=== PATIENT | female | born 1960 | race Caucasian/White ===

== ENCOUNTER 2017-08-16 14:48 | Emergency (ER) | payer MEDICAID, SELFPAY ==
[2017-08-16 15:26] VITALS: BMI 29.2
[2017-08-16 16:58] VITALS: RESP 18; TEMP 36.6; O2SAT 96; BMI 71.1
[2017-08-16 17:00] LABS: Microscopic, Urine URINE MICROSCOPIC (MICROSCOPIC)
[2017-08-16 17:04] LABS: Appearance,Urine Slightly Cloudy (Clear); Color,Urine Amber (Yellow); PH,Urine 6.5 (5.0-8.5); Specific Gravity, Urine 1.025 (1.005-1.030)
[2017-08-16 17:05] LABS: Blood, Urine 1+ (Negative); Glucose,Urine (UA) Negative (Negative); Ketones,Urine 4+ (Negative); Nitrate,Urine Positive (Negative); Protein,Urine 2+ (Negative)
[2017-08-16 17:06] LABS: Bilirubin,Urine 2+ (Negative); Leukocyte Esterase,Urine Trace (Negative)
[2017-08-16 17:12] LABS: Bacteria,Urine 3+ /lpf; Yeast,Urine 2+ /lpf
--- NOTE | 2017-08-16 17:12 | [facility].EDGENADL ---
ED Disposition Clinical Impression: Dehydration, Polycythemia, UTI (urinary tract infection), COPD (chronic obstructive pulmonary disease), Left against medical advice Disposition: Home, Self-Care Condition on Discharge: Fair Additional Instructions: Use Phenergan as needed for vomiting Start antibiotic Cipro 250 p.o. twice daily Drink plenty of liquids Return as needed. Prescriptions: Ciprofloxacin HCl [Cipro 500mg Tab] 500 mg PO Q12 #14 tab - Critical Care Critical Care Time: No Attestation: On 08/16/17, the high probability of a clinically significant, sudden or life threatening deterioration of the following system(s) required my full and direct attention, intervention and personal management. The time I documented below is in addition to time spent performing reported procedures but includes the following listed in this critical care notation. Medical Decision Making - Medical Records Medical records reviewed: Yes: I reviewed the patient's medical records. Vital Signs: 08/16/17 16:58 Temperature 97.8 F Temperature Source Oral Respiratory Rate 18 02 Sat by Pulse Oximetry 96 Oxygen Delivery Method Room Air - Lab Data Lab Results 08/16/17 16:55: Urine Color Lori, Urine Appearance Slightly cloudy, Urine pH 6.5, Ur Specific [place] 1.025, Urine Protein 2+, Urine Glucose (UA) Negative, Urine Ketones 4+, Urine Blood 1+, Urine Nitrate Positive A, Urine Bilirubin 2+ A, Urine Urobilinogen 1.0, Ur Leukocyte Esterase Trace A, Urine WBC 10-20, Ur Squamous Epith Cells 3-5, Urine Bacteria 3+, Urine Yeast 2+ 08/16/17 17:00: Influenza Type A Ag Negative, Influenza Type B Ag Negative 08/16/17 17:07: Sodium 142, Potassium 3.5, Chloride 97 L, Carbon Dioxide 31, Anion Gap 17.5 H, BUN 19 H, Creatinine 1.06 H, Estimated Creat Clear 56, Estimated GFR 54 L, Est GFR ( Amer) 65, Glucose 122 H, Calcium 10.1, Total Bilirubin 1.3 H, AST 17, ALT 9 L, Alkaline Phosphatase 110, Total Protein 8.2, Albumin 4.8, Globulin 3.4 H, Albumin/Globulin Ratio 1.4 08/16/17 17:07: WBC 13.2 H, RBC 5.91 H, Hgb 19.9 H*, Hct 57.5 H, MCV 97.2, MCH 33.7 H, MCHC 34.7, RDW 13.4, Plt Count 286, MPV 7.7, Neut % (Auto) 89.2 H, Lymph % (Auto) 6.7 L, [place] % (Auto) 2.8, Eos % (Auto) 1.2, Baso % (Auto) 0.1, Neut # (Auto) 11.8 H, Lymph # (Auto) 0.9, [place] # (Auto) 0.4, Eos # (Auto) 0.2, Baso # (Auto) 0.0, Total Counted 100, Neutrophils % (Manual) 86 H, Band Neutrophils % 7.0, Lymphocytes % (Manual) 6 L, Monocytes % (Manual) 1 L, Platelet Estimate Normal, Macrocytosis 1+ 08/16/17 17:07: Magnesium 2.2 08/16/17 18:29: Lactic Acid 3.9 H Result diagrams: 08/16/17 17:07 08/16/17 17:07 Orders (Tests/Meds): ED MEDICATIONS Discontinued Medications Generic Name Dose Route Start Last Admin Trade Name Freq PRN Reason Stop Dose Admin Dicyclomine HCl 10 mg 08/16/17 17:13 08/16/17 18:46 Bentyl 10mg Capsule PO 08/16/17 17:14 10 mg ONCE ONE Administration Lactated Ringer's 1,000 mls @ 999 mls/hr 08/16/17 17:15 08/16/17 18:46 Lactated Ringer's 1000 Ml Bag IV 08/16/17 18:15 999 mls/hr .Q1H1M TERESA Administration Lactated Ringer's 1,000 mls @ 999 mls/hr 08/16/17 18:30 08/16/17 19:34 Lactated Ringer's 1000 Ml Bag IV 08/16/17 19:30 999 mls/hr .Q1H1M TERESA Administration Loperamide HCl 4 mg 08/16/17 17:18 08/16/17 18:46 Imodium 2 Mg Capsule PO 08/16/17 17:19 4 mg ONCE ONE Administration Ondansetron HCl 4 mg 08/16/17 17:13 08/16/17 18:46 Zofran 4mg/2ml Vial IV 08/16/17 17:14 4 mg ONCE ONE Administration ORDERS Category Date Time Status Diarrhea Panel, PCR Stat Lab 08/16/17 18:25 Received Blood Culture Stat Micro 08/16/17 18:29 Received Urine Culture Stat Micro 08/16/17 16:55 Received - Radiology Data #1 Image(s): Chest, Abdomen Image Reviewed: Yes I have reviewed radiologist's interpretation Preliminary Findings: Abnormal - Thanh Inquiry Pt receiving controlled substance: No
--- NOTE | 2017-08-16 17:13 | XR_ITS ---
XR acute abdomen series COMPARISON: None HISTORY: Nausea vomiting diarrhea TECHNIQUE: PA chest KUB and upright abdomen FINDINGS: Severe emphysematous change of the chest is noted with marked hyperexpansion of lung galdamez and depression of the hemidiaphragms. There likely are bulla in the right upper lobe. The cardiac silhouette appears somewhat small. There is no pneumonic infiltrate seen. Abdominal films show a rather gasless appearing abdomen consistent with a history of diarrhea. Is a small amount of gas in the lower sigmoid colon and rectum. There are no abnormal soft tissue shadows. There is no free air. There is a vertebroplasty of the L4 vertebral body. IMPRESSION: 1. Severe emphysematous change possibly secondary to alpha-1 antitrypsin deficiency syndrome 2. Somewhat gasless appearing abdomen consistent with diarrhea but there is no evidence of obstruction or other abnormality
--- NOTE | 2017-08-16 17:15 | ED_ITS ---
ED Disposition Clinical Impression: Dehydration, Polycythemia, UTI (urinary tract infection), COPD (chronic obstructive pulmonary disease), Left against medical advice Disposition: Home, Self-Care Condition on Discharge: Fair Additional Instructions: Use Phenergan as needed for vomiting Start antibiotic Cipro 250 p.o. twice daily Drink plenty of liquids Return as needed. Prescriptions: Ciprofloxacin HCl [Cipro 500mg Tab] 500 mg PO Q12 #14 tab - Critical Care Critical Care Time: No Attestation: On 08/16/17, the high probability of a clinically significant, sudden or life threatening deterioration of the following system(s) required my full and direct attention, intervention and personal management. The time I documented below is in addition to time spent performing reported procedures but includes the following listed in this critical care notation. Medical Decision Making - Medical Records Medical records reviewed: Yes: I reviewed the patient's medical records. Vital Signs: 08/16/17 16:58 Temperature 97.8 F Temperature Source Oral Respiratory Rate 18 02 Sat by Pulse Oximetry 96 Oxygen Delivery Method Room Air - Lab Data Lab Results 08/16/17 16:55: Urine Color Lori, Urine Appearance Slightly cloudy, Urine pH 6.5, Ur Specific [place] 1.025, Urine Protein 2+, Urine Glucose (UA) Negative, Urine Ketones 4+, Urine Blood 1+, Urine Nitrate Positive A, Urine Bilirubin 2+ A , Urine Urobilinogen 1.0, Ur Leukocyte Esterase Trace A, Urine WBC 10-20, Ur Squamous Epith Cells 3-5, Urine Bacteria 3+, Urine Yeast 2+ 08/16/17 17:00: Influenza Type A Ag Negative, Influenza Type B Ag Negative 08/16/17 17:07: Sodium 142, Potassium 3.5, Chloride 97 L, Carbon Dioxide 31, Anion Gap 17.5 H, BUN 19 H, Creatinine 1.06 H, Estimated Creat Clear 56, Estimated GFR 54 L, Est GFR ( Amer) 65, Glucose 122 H, Calcium 10.1, Total Bilirubin 1.3 H, AST 17, ALT 9 L, Alkaline Phosphatase 110, Total Protein 8.2, Albumin 4.8, Globulin 3.4 H, Albumin/Globulin Ratio 1.4 08/16/17 17:07: WBC 13.2 H, RBC 5.91 H, Hgb 19.9 H*, Hct 57.5 H, MCV 97.2, MCH 33.7 H, MCHC 34.7, RDW 13.4, Plt Count 286, MPV 7.7, Neut % (Auto) 89.2 H, Lymph % (Auto) 6.7 L, [place] % (Auto) 2.8, Eos % (Auto) 1.2, Baso % (Auto) 0.1, Neut # (Auto) 11.8 H, Lymph # (Auto) 0.9, [place] # (Auto) 0.4, Eos # (Auto) 0.2, Baso # (Auto) 0.0, Total Counted 100, Neutrophils % (Manual) 86 H, Band Neutrophils % 7.0, Lymphocytes % (Manual) 6 L, Monocytes % (Manual) 1 L, Platelet Estimate Normal, Macrocytosis 1+ 08/16/17 17:07: Magnesium 2.2 08/16/17 18:29: Lactic Acid 3.9 H Result diagrams: 08/16/17 17:07 08/16/17 17:07 Orders (Tests/Meds): ED MEDICATIONS Discontinued Medications Generic Name Dose Route Start Last Admin Trade Name Freq PRN Reason Stop Dose Admin Dicyclomine HCl 10 mg 08/16/17 17:13 08/16/17 18:46 Bentyl 10mg Capsule PO 08/16/17 17:14 10 mg ONCE ONE Administration Lactated Ringer's 1,000 mls @ 999 mls/hr 08/16/17 17:15 08/16/17 18:46 Lactated Ringer's 1000 Ml Bag IV 08/16/17 18:15 999 mls/hr .Q1H1M TERESA Administration Lactated Ringer's 1,000 mls @ 999 mls/hr 08/16/17 18:30 08/16/17 19:34 Lactated Ringer's 1000 Ml Bag IV 08/16/17 19:30 999 mls/hr .Q1H1M TERESA Administration Loperamide HCl 4 mg 08/16/17 17:18 08/16/17 18:46 Imodium 2 Mg Capsule PO 08/16/17 17:19 4 mg ONCE ONE Administration
[2017-08-16 17:27] LABS: Magnesium 2.2 mg/dL (1.4-2.2)
[2017-08-16 17:31] LABS: Basophils % 0.1 % (0.1-2.0); Eosinophils # 0.2 K/mm3 (0.0-0.4); Eosinophils % 1.2 % (0.1-12.0); Lymphocytes # 0.9 K/mm3 (0.7-4.5); Lymphocytes % 6.7 K/mm3 (10-50); Mean Corpuscular HGB Conc 34.7 g/dL (31.8-35.4); Mean Corpuscular Hemoglobin 33.7 pg (27.0-31.2); Mean Corpuscular Volume 97.2 fl (81-99); Mean Platelet Volume 7.7 fl (7.4-10.4); Monocytes # 0.4 K/mm3 (0.1-1.0); Monocytes % 2.8 % (1.7-9.3); Neutrophils # 11.8 K/mm3 (1.8-7.8); Neutrophils % 89.2 % (37.0-80.0); Platelet Count 286 K/mm3 (142-424); Red Blood Count 5.91 M/mm3 (4.20-5.40); Red Cell Distribution Width 13.4 % (11.5-17.5); White Blood Count 13.2 K/mm3 (4.8-10.8)
[2017-08-16 17:37] LABS: Alanine Aminotransferase 9 U/L (12-78); Albumin Level 4.8 gm/dL (3.4-5.0); Albumin/Globulin Ratio 1.4 (1.1-1.8); Alkaline Phosphatase 110 U/L (46-116); Anion Gap 17.5 mEq/L (5-15); Aspartate Amino Transferase 17 U/L (15-37); Bilirubin,Total 1.3 mg/dL (0.2-1.0); Blood Urea Nitrogen 19 mg/dL (7-18); Calcium 10.1 mg/dL (8.5-10.1); Carbon Dioxide 31 mmol/L (21.0-32.0); Chloride 97 mmol/L (98-107); Creatinine Clearance Estimated 56 mL/min (0-300); Creatinine,Serum 1.06 mg/dL (0.55-1.02); Estimated Glomerular Filt Rate 54 ml/min (>60); GFR (African American) 65 ML/MIN (>60); Globulin 3.4 gm/dl (1.3-3.2); Glucose 122 mg/dL (74-106); Potassium 3.5 mmoL/L (3.5-5.1); Sodium 142 mmol/L (136-145); Total Protein,Serum 8.2 gm/dL (6.4-8.2)
[2017-08-16 17:38] LABS: Hematocrit 57.5 % (37.0-47.0); Hemoglobin 19.9 g/dL (12.2-16.2)
[2017-08-16 17:39] LABS: MANUAL DIFFERENTIAL MANUAL DIFFERENTIAL (MANUAL DIFF)
[2017-08-16 17:44] LABS: Lymphocytes % 6 % (10-50); Macrocytosis 1+; Monocytes % 1 % (2-9); Neutrophils % 86 % (42-76); Platelet Estimate Normal; Total Cells Counted 100
[2017-08-16 18:27] LABS: Adenovirus F 40/41, stool Not Detected (NotDetected); Astrovirus Not Detected (NotDetected); Campylobacter Not Detected (NotDetected); Clostridium Difficile A/B, PCR Not Detected (NotDetected); Cryptosporidium Not Detected (NotDetected); Cyclospora Cayetanesis Not Detected (NotDetected); Entamoeba histolytica Not Detected (NotDetected); Enteroaggregative E coli Not Detected (NotDetected); Enteropathogenic E coli Not Detected (NotDetected); Enterotoxigenic E coli Not Detected (NotDetected); Giardia lamblia Not Detected (NotDetected); Norovirus Not Detected (NotDetected); Plesimonas Shigalloides, PCR Not Detected (NotDetected); Rotavirus A Not Detected (NotDetected); Salmonella, PCR Not Detected (NotDetected); Sapovirus Not Detected (NotDetected); Shiga-like toxin E coli Not Detected (NotDetected); Shigella Enterovasive E coli Not Detected (NotDetected); Vibrio Cholerae Not Detected (NotDetected); Vibrio, PCR Not Detected (NotDetected); Yersinia Entercolitica, PCR Not Detected (NotDetected)
[2017-08-16 19:16] LABS: Lactic Acid 3.9 mmol/L (0.4-2.0)
[2017-08-16 20:01] VITALS: BP 109/65; PULSE 91; RESP 16; TEMP 37.2; O2SAT 99
[2017-08-16 20:18] LABS: Reflex Lactic No Lactic Reflex
--- NOTE | 2017-08-24 15:20 | PC.NURSE ---
This patient rec'd a phenergan take home pack. The mar was adjusted for charging purposes. RX [id number]
== END 2017-08-16 20:02 | disposition home or self-care (01) ==
LOC: UTC 14:59 → ER 16:34
PROVIDERS: Emergency Provider Emergency Medicine
DX: E86.0 Dehydration (principal); D75.1 Secondary polycythemia; N39.0 Urinary tract infection, site not specified; J44.9 Chronic obstructive pulmonary disease, unspecified; F17.210 Nicotine dependence, cigarettes, uncomplicated; Z53.21 Procedure and treatment not carried out due to patient leaving prior to being seen by health care provider
CPT/HCPCS: 74021; 80053; 81001; 83605; 83735; 85007; 85025; 87040; 87086; 87088; 87186; 87275; 87276; 87507; 96365; 96366; 96375; 99284; J2405

== ENCOUNTER → 2018-03-26 15:58 | Outpatient (CLI) | payer MEDICAID, SELFPAY ==
--- NOTE | 2018-03-26 16:11 | XR_ITS ---
XR chest 2V HISTORY: ITS.REASON: PERIPHERAL EDEMA, COUGH ORDERING PHYSICIAN: Zeeshan Sheridan MD PATIENT AGE: 57 years COMPARISON: None FINDINGS: The heart size is unremarkable. There is hyperinflation with attenuation of the peripheral pulmonary vessels consistent with COPD/emphysema. On the lateral view there is increased density within the posterior costophrenic sulcus. This is ill-defined and suggestive of underlying pneumonia or effusion. This however is not identified on the frontal view. No acute bony anomalies. IMPRESSION: 1. COPD/emphysema. 2. Increased density within the posterior costophrenic sulcus suggesting underlying effusion and/or infiltrate
[2018-03-26 16:16] LABS: Basophils % 0.4 % (0.1-2.0); Eosinophils # 0.1 K/mm3 (0.0-0.4); Eosinophils % 2.3 % (0.1-12.0); Hematocrit 57.3 % (37.0-47.0); Hemoglobin 17.9 g/dL (12.2-16.2); Lymphocytes # 0.5 K/mm3 (0.7-4.5); Lymphocytes % 11.8 K/mm3 (10-50); Mean Corpuscular HGB Conc 31.3 g/dL (31.8-35.4); Mean Corpuscular Hemoglobin 31.3 pg (27.0-31.2); Mean Corpuscular Volume 100.1 fl (81-99); Monocytes # 0.2 K/mm3 (0.1-1.0); Monocytes % 4.3 % (1.7-9.3); Neutrophils # 3.5 K/mm3 (1.8-7.8); Neutrophils % 81.2 % (37.0-80.0); Platelet Count 166 K/mm3 (142-424); Red Blood Count 5.73 M/mm3 (4.20-5.40); Red Cell Distribution Width 13.6 % (11.5-17.5); White Blood Count 4.3 K/mm3 (4.8-10.8)
[2018-03-26 18:05] LABS: Alanine Aminotransferase 11 U/L (12-78); Albumin Level 3.4 gm/dL (3.4-5.0); Albumin/Globulin Ratio 1.4 (1.1-1.8); Alkaline Phosphatase 102 U/L (46-116); Anion Gap 8.8 mEq/L (5-15); Aspartate Amino Transferase 13 U/L (15-37); Bilirubin,Total 1.1 mg/dL (0.2-1.0); Blood Urea Nitrogen 13 mg/dL (7-18); Calcium 8.6 mg/dL (8.5-10.1); Carbon Dioxide 39 mmol/L (21.0-32.0); Chloride 96 mmol/L (98-107); Creatinine,Serum 0.86 mg/dL (0.55-1.02); Estimated Glomerular Filt Rate 69 ml/min (>60); GFR (African American) 83 ML/MIN (>60); Globulin 2.5 gm/dl (1.3-3.2); Glucose 78 mg/dL (74-106); Magnesium 2.1 mg/dL (1.4-2.2); Potassium 3.8 mmoL/L (3.5-5.1); Sodium 140 mmol/L (136-145); Thyroid Stimulating Hormone 3.14 uIU/ml (0.358-3.740); Total Protein,Serum 5.9 gm/dL (6.4-8.2)
== END ==
PROVIDERS: PCP Internal Medicine Adolescent Medicine; Visit Provider Internal Medicine Adolescent Medicine
DX: R60.9 Edema, unspecified (principal); R05 Cough
CPT/HCPCS: 36415; 71046; 80053; 83735; 84443; 85025

== ENCOUNTER → 2018-04-06 11:04 | Outpatient (CLI) | payer MEDICAID, SELFPAY ==
--- NOTE | 2018-04-06 11:10 | CT_ITS ---
CT chest w con HISTORY: Emphysema, cough, abnormal chest x-ray, tobacco use/smoker ITS.REASON: ABNORMAL CHEST X-RAY ORDERING PHYSICIAN: Zeeshan Sheridan MD PATIENT AGE: 57 years COMPARISON: None TECHNIQUE: Axial images obtained following the administration of 75 mL of Isovue 370 . Sagittal, and coronal reformatted images are also generated and reviewed. All CT scans at the facility use one or more dose reduction, viz: automated exposure control, ma/kV adjustment per patient size (including targeted exams where dose is matched to indication, i.e. head), or iterative reconstruction technique. FINDINGS: No mediastinal or hilar mass or adenopathy. No evidence of aortic aneurysm or central pulmonary embolus. The right and left main pulmonary arteries are somewhat prominent each measuring 2.8 cm. The ascending aorta measures 2.9 cm. The main pulmonary artery measures 3 cm. The atrium and right ventricle are enlarged with mild bowing of the cardiac septum toward the left ventricle consistent with right heart strain. There is diffuse panlobular emphysematous change. No lobar consolidation or collapse is evident. There is a noncalcified 6 mm nodule in the right lower lobe laterally. A calcified granulomas present in the left lung base anteriorly. There are minimal atelectatic or fibrotic changes in the lung bases. No effusions or infiltrates. Upper abdominal images show mild amount of ascites. No acute bony anomalies. IMPRESSION: 1. Centrilobular emphysema with mild atelectatic or fibrotic changes in the lung bases. 2. Mild prominence of the pulmonary artery trunk and right and left main pulmonary artery suggesting pulmonary arterial hypertension. 3. Enlarged right atrium and right ventricle with bowing of the cardiac septum toward the left ventricle consistent with right heart strain. 4. Noncalcified 6 mm nodule right lung base. Nonspecific. Recommend 6 month follow-up
== END ==
PROVIDERS: Family Provider Internal Medicine Adolescent Medicine; PCP Internal Medicine Adolescent Medicine; Visit Provider Internal Medicine Adolescent Medicine
DX: R93.8 Abnormal findings on diagnostic imaging of other specified body structures (principal)
CPT/HCPCS: 71260; Q9967

== ENCOUNTER → 2018-04-16 11:11 | Outpatient (CLI) | payer MEDICAID, SELFPAY ==
--- NOTE | 2018-04-16 11:16 | CA_ITS ---
PROCEDURE: 2-D M-mode and color Doppler study INDICATIONS FOR THE TEST: Chest pain + COPD+ Heart Murmur Tobacco Smoking+ Palpitations+ Fatigue+ Syncope Edema+ Hypertension Diabetes Mellitus Rheumatic Fever SOB+PRIETO Obesity Hyperlipidemia Family History HD Additional History PATIENT INFORMATION HEIGHT:70 WEIGHT:122 GENDER: Female B/P: 2-D/M-MODE INTERPRETATION: 2-D MEASUREMENTS OBSERVED VALUES IN CMS Right Ventricular Dimension (RVDd) 3.8 Interventricular Septum (Thickness)(IVsd) 1.0 Left Ventricular Internal Dimensions(LVIDd) 2.8 Left Ventricular Posterior Wall (Thickness)(LVPWd) 1.0 Aortic Root 2.8 Aortic Cusp Separation 1.9 Left Atrial Dimensions (LAD) 2.6 2D 1. Left atrium is mildly enlarged, left ventricle is normal size, there is no concentric left ventricular hypertrophy, visually estimated ejection fraction of 55%, there is flattening of the interventricular septum during systole and diastole consistent with pressure and volume overload on right ventricle. 2. The right atrium and right ventricle are mildly enlarged, contractility of the right ventricle is severely reduced. 3. The aortic valve is minimally thickened and calcified leaflet continue to display good mobility. 4. The mitral and tricuspid valve leaflets are minimally thickened. 5. The pulmonic valve is poorly visualized. 6. No significant pericardial effusion noted. DOPPLER INTERROGATION: Doppler interrogation of the aortic, mitral and tricuspid valvular presence of mild mitral and severe tricuspid regurgitation, calculated right ventricular systolic pressure is 76 mmHg consistent with there are severe pulmonary hypertension, grade 1 diastolic dysfunction seen without tissue Doppler evidence of raised left atrial pressure. Inferior vena cava is not well visualized. CONCLUSION: 1. Normal left ventricular size, preserved left ventricular systolic function, visually estimated ejection fraction of 55% with no regional wall motion abnormality, there is flattening of the interventricular septum during systole and diastole consistent with pressure and volume overload on right ventricle. 2. Markedly enlarged right atrium and right ventricle, contractility of the right ventricle is severely reduced. 3. Mild mitral and severe tricuspid regurgitation, calculated right ventricular systolic pressure is 76 mmHg consistent with severe pulmonary hypertension, grade 1 diastolic dysfunction seen without tissue Doppler evidence of raised left atrial pressure, inferior vena cava is not well visualized. 4. No signi
== END ==
PROVIDERS: PCP Internal Medicine Adolescent Medicine; Visit Provider Internal Medicine Adolescent Medicine
DX: I51.7 Cardiomegaly (principal); R60.9 Edema, unspecified
CPT/HCPCS: 93306